=== PATIENT | male | born 1970 | race Caucasian/White ===

== ENCOUNTER 2017-09-02 11:01 | Emergency (ER) | payer OTHER ==
[~2017-09-02] VITALS: Ht 177.8 cm; Wt 100.0 kg
[2017-09-02] MEDS ORDERED: KETOROLAC 30 MG/1 ML ONE (11:28)
[2017-09-02] MEDS ORDERED: HYDROcodone/APAP 5/325 TABLET ONE (11:28)
[2017-09-02] MEDS ORDERED: HYDROcodone/APAP 5/325 TABLET PO ONE (11:30)
[2017-09-02] MEDS ORDERED: KETOROLAC 30 MG/1 ML IM ONE (11:30)
[2017-09-02] MEDS ORDERED: CITA10TA4 PO (11:43)
[2017-09-02] MEDS ORDERED: LOSA50TA6 PO (11:43)
[2017-09-02] MEDS ORDERED: LEVO75TA5 PO (11:43)
[2017-09-02] MEDS ORDERED: OMEP-110 PO (11:45)
[2017-09-02] MEDS ORDERED: COLE625T12 PO (11:45)
[2017-09-02 12:51] VITALS: BP 135/87
== END 2017-09-02 12:53 | disposition home or self-care (01) ==
LOC: ED 12:47
DX: S20.211A Contusion of right front wall of thorax, initial encounter (principal); E03.9 Hypothyroidism, unspecified; I10 Essential (primary) hypertension; K50.90 Crohn's disease, unspecified, without complications; Y04.0XXA Assault by unarmed brawl or fight, initial encounter; Y93.89 Activity, other specified; Y92.89 Other specified places as the place of occurrence of the external cause; Y99.8 Other external cause status
CPT/HCPCS: 71101; 72072; 96372; 99284; J1885